=== PATIENT | female | born 1945 | race Caucasian/White ===

== ENCOUNTER 2017-12-18 20:40 | Observation (INO) | payer MEDICARE ==
[~2017-12-18] VITALS: Ht 162.6 cm; Wt 100.7 kg
[~2017-12-18 20:40] MED LIST: ASPIR 8181 MG PO; ATORVASTATIN CA10 MG PO; FUROSEMIDE40 MG PO; INVOKANA PO; METFORMIN HCL500 M2 PO; POTASSIUM CHLO10 ME1 PO; ZEBETA10 MG PO
[2017-12-18] MEDS ORDERED: ONDANSETRON HCL INJ 2 MG/ML VIAL IV STA (21:10)
[2017-12-18 21:20] LABS: BASOPHILS # (AUTO) 0.1 (0.0-0.1); BASOPHILS % 0.5 % (0.0-1.0); EOSINOPHILS # (AUTO) 0.2 (0.0-0.4); EOSINOPHILS % 1.3 % (0.0-6.0); HEMATOCRIT 47.2 % (34.2-44.1); HEMOGLOBIN 15.7 g/dL (12.0-16.0); LYMPHOCYTES # (AUTO) 4.3 (1.0-3.2); LYMPHOCYTES % 34.2 % (18.0-39.1); MEAN CORPUSCULAR HEMOGLOBIN 29.3 pg (28-32); MEAN CORPUSCULAR HGB CONC 33.3 g/dL (31-35); MEAN CORPUSCULAR VOLUME 88.1 fL (81-99); MONOCYTES # (AUTO) 0.8 (0.2-0.8); MONOCYTES % 6.4 % (4.4-11.3); NEUTROPHILS # (AUTO) 7.2 (2.1-6.9); NEUTROPHILS % 57.3 % (38.7-80.0); PLATELET COUNT 285 x10e3/uL (140-360); RED BLOOD COUNT 5.36 x10e6/uL (3.6-5.1); RED CELL DISTRIBUTION WIDTH 12.4 % (11.7-14.4)
[2017-12-18 21:21] LABS: BILIRUBIN,URINE NEGATIVE (NEGATIVE); CLARITY,URINE CLEAR (CLEAR); COLOR,URINE YELLOW (YELLOW); KETONES,URINE NEGATIVE (NEGATIVE); LEUKOCYTE ESTERASE ,URINE TRACE (NEGATIVE); NITRITE,URINE NEGATIVE (NEGATIVE); PROTEIN,URINE DIPSTICK NEGATIVE (NEGATIVE); URINE UROBILINOGEN 0.2 mg/dL (0.2 - 1)
[2017-12-18 21:39] LABS: BACTERIA,URINE RARE /HPF; EPITHELIAL CELLS,URINE RARE /LPF; RBC,URINE 0-5 /HPF (0-5); TRANSITIONAL EPI CELLS,URINE RARE
[2017-12-18 21:40] LABS: ALANINE AMINOTRANSFERASE 17 IU/L (0-55); ALBUMIN 4.5 g/dL (3.5-5.0); ALBUMIN/GLOBULIN RATIO 1.1 (0.8-2.0); ALKALINE PHOSPHATASE 60 IU/L (40-150); ANION GAP 20.3 mmol/L (8-16); BLOOD UREA NITROGEN 19 mg/dL (7-26); BUN/CREATININE RATIO 25 (6-25); CALCIUM 10.8 mg/dL (8.4-10.2); CARBON DIOXIDE 21 mmol/L (22-29); CHLORIDE 107 mmol/L (98-107); CREATINE KINASE 146 IU/L (29-168); CREATININE, SERUM 0.76 mg/dL (0.57-1.11); EST GLOMERULAR FILTRATION RATE > 60 ML/MIN (60-); GLUCOSE 122 mg/dL (74-118); POTASSIUM 4.3 mmol/L (3.5-5.1); SODIUM 144 mmol/L (136-145)
--- NOTE | 2017-12-18 22:00 | Diagnostic Imaging Report ---
EXAMINATION: Head CT without contrast. HISTORY:Dizziness, syncope. COMPARISON:CT brain from 08/01/2016. TECHNIQUE: Multidetector axial images were obtained from the foramen magnum to the vertex without contrast. The images were reconstructed using brain and bone algorithms. Thin section brain images were reformatted into coronal and sagittal planes. Intravenous contrast: None IMAGE QUALITY: Acceptable. FINDINGS: Skull/scalp: No abnormality. Parenchyma: Unchanged focal hypodensity in right subinsular region/lateral aspect of right lentiform nucleus represents old vascular insult. Nonspecific supratentorial white matter few, scattered hypodensity are likely related to small vessel ischemic changes. No acute hemorrhage, mass or acute major vascular territorial infarct. Arteries: Unchanged curvilinear dense calcifications in the region of M1 segment (approximately measures 1.7 cm in maximum transverse dimension) of right middle cerebral artery, raises possibility of underlying fusiform aneurysm or related to prior infection/inflammation. Dural sinuses: No abnormal density suggestive of thrombosis. Ventricles: No hydrocephalus or displacement. Extra-axial spaces: No abnormal density. Brain volume: Normal for age. Craniocervical junction: No mass, Chiari malformation, or basilar invagination. Sella: No mass. Paranasal/mastoid sinuses: Imaged portions unremarkable. IMPRESSION: 1. No acute intracranial abnormality, particularly no acute hemorrhage, mass or acute major vascular territorial infarct. 2. Chronic vascular insult in right subinsular region/lateral aspect of right lentiform nucleus. 3. Unchanged dense atherosclerotic calcification in the region of M1 segment of right middle cerebral artery, may be related to underlying fusiform aneurysm or sequele of prior infection/inflammation. Signed by: Dr. Gabi Atkins M.D. on 12/18/2017 9:56 PM
--- NOTE | 2017-12-18 22:13 | Diagnostic Imaging Report ---
EXAMINATION: CHEST SINGLE (PORTABLE) INDICATION: Syncope COMPARISON: None FINDINGS: TUBES and LINES: None. LUNGS: Lungs are well inflated. Lungs are clear. There is no evidence of pneumonia or pulmonary edema. PLEURA: No pleural effusion or pneumothorax. HEART AND MEDIASTINUM: The cardiomediastinal silhouette is unremarkable. There are atherosclerotic calcifications within the aorta. BONES AND SOFT TISSUES: No acute osseous lesion. Soft tissues are unremarkable. UPPER ABDOMEN: No free air under the diaphragm. IMPRESSION: No acute thoracic abnormality. Signed by: Dr. Souleymane Kendall M.D. on 12/18/2017 10:10 PM
[2017-12-18] MEDS ORDERED: ONDANSETRON HCL INJ 2 MG/ML VIAL IV PRN (22:45)
[2017-12-18] MEDS ORDERED: DEXTROSE 50% SYRINGE 50 ML IV PRN (22:45)
[2017-12-18] MEDS ORDERED: SODIUM CHLORIDE FLUSH 10 ML SYR INJ PRN (22:45)
[2017-12-18] MEDS ORDERED: ASPIRIN 81 MG CHEW TAB PO ONE (22:45)
--- OUTSIDE RECORDS SUMMARY | 2017-12-18 22:54 | XMS REPORT ---
Author Author [facility] Address Unknown Phone Unavailable Care Team Providers Care Surplus Property Disposal Agent Name Role Phone HAKEEM GROVE Unavailable Unavailable Problems This patient has no known problems. Allergies, Adverse Reactions, Alerts This patient has no known allergies or adverse reactions. Medications This patient has no known medications. Results Test Description Test Time Test Comments Text Results Atomic Results Result Comments CT BRAIN WO [place] [id number] [place] [id number] Patient Name: JOHANN RAND MR #: [id number] : 1945 Age/Sex: 72/F Req #: [id number] Adm Physician: Ordered by: HAKEEM GROVE MD Report #: [id number] Location: ER Room/Bed: Procedure: [id number] CT/CT BRAIN WO Exam Date: 12/18/17 Exam Time: 2133 REPORT STATUS: Signed EXAMINATION: Head CT without contrast. HISTORY:Dizziness, syncope. COMPARISON:CT brain from 08/01/2016. TECHNIQUE: Multidetector axial images were obtained from the foramen magnum to the vertex without contrast. The images were reconstructed using brain and bone algorithms. Thin section brain images were reformatted into coronal and sagittal planes. Intravenous contrast: None IMAGE QUALITY: Acceptable. FINDINGS: Skull/scalp: No abnormality. Parenchyma: Unchanged focal hypodensity in right subinsular region/lateral aspect of right lentiform nucleus represents old vascular insult. Nonspecific supratentorial white matter few, scattered hypodensity are likely related to small vessel ischemic changes. No acute hemorrhage, mass or acute major vascular territorial infarct. Arteries: Unchanged curvilinear dense calcifications in the region of M1 segment (approximately measures 1.7 cm in maximum transverse dimension) of right middle cerebral artery, raises possibility of underlying fusiform aneurysm or related to prior infection/ inflammation. Dural sinuses: No abnormal density suggestive of thrombosis. Ventricles: No hydrocephalus or displacement. Extra- axial spaces: No abnormal density. Brain volume: Normal for age. Craniocervical junction: No mass, Chiari malformation, or basilar invagination. Sella: No mass. Paranasal/mastoid sinuses: Imaged portions unremarkable. IMPRESSION: 1. No acute intracranial abnormality, particularly no acute hemorrhage, mass or acute major vascular territorial infarct. 2. Chronic vascular insult in right subinsular region/ lateral aspect of right lentiform nucleus. 3. Unchanged dense atherosclerotic calcification in the region of M1 segment of right middle cerebral artery, may be related to underlying fusiform aneurysm or sequele of prior infection/inflammation. Signed by: Dr. Gabi Atkins M.D. on 12/18/2017 9:56 PM Dictated By: GABI ATKINS MD 55 Transcribed By: ERIK on 12/18 COPY TO: HAKEEM GROVE MD [facility] ([facility]) [place] [address] Patient Name: JOHANN RAND MR #: [id number] : 1945 Age/Sex: 72/F Req #: [id number] Adm Physician: Ordered by: HAKEEM GROVE MD Report #: [id number] Location: Room/Bed: ___ Procedure: [id number] DX/CHEST SINGLE (PORTABLE) Exam Date: 12/18/17 Exam Time: 2134 REPORT STATUS: Signed EXAMINATION: CHEST SINGLE (PORTABLE) INDICATION: Syncope COMPARISON: None FINDINGS: TUBES and LINES: None. LUNGS: Lungs are well inflated. Lungs are clear. There is no evidence of pneumonia or pulmonary edema. PLEURA: No pleural effusion or pneumothorax. HEART AND MEDIASTINUM: The cardiomediastinal silhouette is unremarkable. There are atherosclerotic calcifications within the aorta. BONES AND SOFT TISSUES: No acute osseous lesion. Soft tissues are unremarkable. UPPER ABDOMEN: No free air under the diaphragm. IMPRESSION: No acute thoracic abnormality. Signed by: Dr. Souleymane Kendall M.D. on 12/18/2017 10:10 PM Dictated By: SOULEYMANE MART MD 09 Transcribed By: ERIK on 12/18/172209 COPY TO: HAKEEM GROVE MD
[2017-12-18 23:10] VITALS: BP_SYST 150; BP_DIAS 69; BP_DIAS 76
[2017-12-19] VITALS (7 sets, daily range): BP systolic 125–166; BP diastolic 57–72
[2017-12-19] MEDS ORDERED: ASPIRIN 81 MG CHEW TAB PO SCH (00:45)
[2017-12-19] MEDS ORDERED: ATORVASTATIN 10 MG TAB PO ONE (00:45)
[2017-12-19 06:35] LABS: BASOPHILS % 0.4 % (0.0-1.0); EOSINOPHILS # (AUTO) 0.2 (0.0-0.4); EOSINOPHILS % 1.9 % (0.0-6.0); HEMATOCRIT 43.2 % (34.2-44.1); HEMOGLOBIN 14.3 g/dL (12.0-16.0); LYMPHOCYTES # (AUTO) 3.7 (1.0-3.2); LYMPHOCYTES % 41.2 % (18.0-39.1); MEAN CORPUSCULAR HEMOGLOBIN 29.1 pg (28-32); MEAN CORPUSCULAR HGB CONC 33.1 g/dL (31-35); MONOCYTES # (AUTO) 0.8 (0.2-0.8); MONOCYTES % 8.8 % (4.4-11.3); NEUTROPHILS # (AUTO) 4.3 (2.1-6.9); NEUTROPHILS % 47.5 % (38.7-80.0); PLATELET COUNT 249 x10e3/uL (140-360); RED BLOOD COUNT 4.91 x10e6/uL (3.6-5.1); RED CELL DISTRIBUTION WIDTH 12.5 % (11.7-14.4)
[2017-12-19 07:06] LABS: ALANINE AMINOTRANSFERASE 16 IU/L (0-55); ALBUMIN 3.7 g/dL (3.5-5.0); ALBUMIN/GLOBULIN RATIO 1.1 (0.8-2.0); ALKALINE PHOSPHATASE 50 IU/L (40-150); ANION GAP 15.2 mmol/L (8-16); BLOOD UREA NITROGEN 17 mg/dL (7-26); BUN/CREATININE RATIO 23 (6-25); CALCIUM 10.2 mg/dL (8.4-10.2); CARBON DIOXIDE 23 mmol/L (22-29); CHLORIDE 109 mmol/L (98-107); CREATINE KINASE 101 IU/L (29-168); CREATININE, SERUM 0.73 mg/dL (0.57-1.11); EST GLOMERULAR FILTRATION RATE > 60 ML/MIN (60-); GLUCOSE 116 mg/dL (74-118); POTASSIUM 4.2 mmol/L (3.5-5.1); SODIUM 143 mmol/L (136-145)
[2017-12-19] MEDS: INSULIN REGULAR, HUMAN 100 UNIT/1 ML 3ML VIAL SQ SCH ×4 (07:30→21:00)
--- NOTE | 2017-12-19 14:10 | Consultation ---
DATE OF CONSULTATION: December 19, 2017 CARDIOLOGY CONSULTATION REQUESTING PHYSICIAN: Dr. Vu Diaz REASON FOR CONSULTATION: Syncope. HISTORY OF PRESENT ILLNESS: This is a 72-year-old woman with history of hypertension, hyperlipidemia, diabetes mellitus, and sleep apnea, who presents with complaint of syncope. The patient reports she was feeling well and in her usual state of health until yesterday when she was visiting some friends. She was sitting down when she bent over and began to feel dizzy. She sat up and then lost consciousness. This was witnessed by her friend, who stated she was shaking a little at this time. There was no tongue biting or bowel or bladder incontinence. The episode lasted approximately 30 seconds. There were no preceding symptoms. She denies chest pain, shortness of breath, palpitations, edema, orthopnea or PND. REVIEW OF SYSTEMS: Negative, except as per HPI. PAST MEDICAL HISTORY 1. Hypertension. 2. Hyperlipidemia. 3. Diabetes mellitus. 4. Sleep apnea. 5. History of murmur. PAST SURGICAL HISTORY 1. Tubal ligation. 2. Hysterectomy. 3. Appendectomy. 4. Cholecystectomy. ALLERGIES: NO KNOWN DRUG ALLERGIES. MEDICATIONS: Please see EMR. SOCIAL HISTORY: Denies tobacco, alcohol, or illicit drugs. FAMILY HISTORY: Denies any family history of heart disease. PHYSICAL EXAMINATION VITAL SIGNS: Temperature 97.3 degrees, pulse 59, respiratory rate 20, blood pressure 133/61, oxygen saturation 95% on room air. GENERAL: Obese woman in no acute distress. HEENT: Normocephalic and atraumatic. Pupils are equal and round. No scleral icterus. NECK: Supple. No thyromegaly or cervical lymphadenopathy. No carotid bruit. LUNGS: Clear to auscultation bilaterally. No wheezes or crackles. CARDIOVASCULAR: Normal rate, regular rhythm. No murmur. Normal S1 and S2. ABDOMEN: Soft. Nontender. EXTREMITIES: No edema. NEURO: Nonfocal exam. LABS: WBC 8.96, hemoglobin 14.3, hematocrit 43.2, platelets 249. Sodium 143, potassium 4.2, chloride 109, CO2 23, BUN 15, creatinine 0.73. Troponin 0.014. Chest x-ray: No acute thoracic abnormality. CT brain: No acute intracranial abnormality. Particularly, no acute hemorrhage, mass or acute major vascular territorial infarct. Chronic vascular insult in right subinsular region, lateral aspect of the right lenticular nucleus. Unchanged dense atherosclerotic opacification in the region of the M1 segment of the right middle cerebral artery may be related to underlying fusiform aneurysm or sequelae of prior infection/inflammation. Carotid Dopplers: No hemodynamically significant stenosis. IMPRESSION 1. Syncope. 2. Hypertension. 3. Hyperlipidemia. 4. Diabetes mellitus. 5. Sleep apnea. RECOMMENDATIONS: No evidence of myocardial infarction on cardiac biomarkers thus far. Carotid arterial Doppler was without significant stenosis. Monitor the patient on telemetry for arrhythmia that may explain the patient's symptoms. Echocardiogram has been done. It is pending. We will review the images once it is done. Thank you for this consult. We will continue to follow. Job#: [id number]
[2017-12-19 14:52] LABS: CREATINE KINASE MB 3.7 ng/mL (0-5.0)
[2017-12-19] MEDS ORDERED: ATORVASTATIN 10 MG TAB PO SCH (21:00)
[2017-12-20] VITALS (8 sets, daily range): BP systolic 120–163; BP diastolic 59–70
[2017-12-20] MEDS: INSULIN REGULAR, HUMAN 100 UNIT/1 ML 3ML VIAL SQ SCH ×2 (07:30→11:30)
--- NOTE | 2017-12-20 14:09 | Progress Note ---
DATE: December 20, 2017 CARDIOLOGY PROGRESS NOTE SUBJECTIVE: Patient denies chest pain or shortness of breath. OBJECTIVE VITAL SIGNS: Temperature 98.5 degrees, pulse 63, respiratory rate 16, blood pressure 120/63, oxygen saturation 96% on room air. GENERAL: Awake, alert, in no acute distress. LUNGS: Clear to auscultation bilaterally. No wheezes or crackles. CARDIOVASCULAR: Normal rate, regular rhythm. No murmur. Normal S1 and S2. ABDOMEN: Soft, nontender. EXTREMITIES: No edema. CARDIAC MEDICATIONS: Atorvastatin 10 mg p.o. nightly. LABS: None today. TELEMETRY: Normal sinus rhythm. IMPRESSION 1. Syncope. 2. Hypertension. 3. Hyperlipidemia. 4. Diabetes mellitus. 5. Sleep apnea. RECOMMENDATIONS: There is no evidence of myocardial infarction on serial cardiac biomarkers. Carotid artery arterial Doppler was without evidence of significant stenosis. The echocardiogram was unremarkable, and no arrhythmias have been identified on telemetry and orthostatic vitals have been negative. Patient can be discharged home from a cardiac standpoint. Please have her follow up in the office for 2-week telemetry monitoring. Thank you for this consult. We will continue to follow. Job#: [id number]
== END 2017-12-20 12:48 | disposition home or self-care (01) ==
LOC: ER 20:40 → MED/SURG 22:51
DX: R55 Syncope and collapse (principal); E11.9 Type 2 diabetes mellitus without complications; I10 Essential (primary) hypertension; E66.01 Morbid (severe) obesity due to excess calories; Z68.38 Body mass index [BMI] 38.0-38.9, adult; E78.5 Hyperlipidemia, unspecified; G47.30 Sleep apnea, unspecified
CPT/HCPCS: 36415; 70450; 71045; 80053; 81001; 82550; 82553; 82948; 84484; 85025; 93005; 93306; 93880; 97139; 99284; G0378; J2405

== ENCOUNTER 2018-07-16 11:10 | Observation (INO) | payer MEDICARE ==
[~2018-07-16] VITALS: Ht 162.6 cm; Wt 103.0 kg
[2018-07-16] MEDS ORDERED: ONDANSETRON HCL INJ 2 MG/ML VIAL IV STA (11:26)
[2018-07-16] MEDS ORDERED: SODIUM CHLORIDE 0.9% 1000ML 1,000 ML IV STA (11:26)
[2018-07-16] MEDS ORDERED: ASPIRIN 81 MG CHEW TAB PO ONE ×2 (11:30→14:15)
--- NOTE | 2018-07-16 12:21 | Diagnostic Imaging Report ---
Examination: Single AP view of the chest. COMPARISON: December 18, 2017 INDICATION: Syncope, nausea DISCUSSION: Lines/tubes: None. Lungs: The lungs are well inflated and clear. No pneumonia or pulmonary edema. Pleura: No pleural effusion or pneumothorax. Heart and mediastinum: The heart and the mediastinum are unremarkable. Bones and soft tissues: No acute bony abnormalities. IMPRESSION: 1. No acute cardiopulmonary abnormalities. Signed by: Dr. Wilmer High M.D. on 07/16/2018 12:17 PM
[2018-07-16 12:23] LABS: BASOPHILS % 0.4 % (0.0-1.0); EOSINOPHILS # (AUTO) 0.1 (0.0-0.4); EOSINOPHILS % 1.2 % (0.0-6.0); HEMATOCRIT 46.3 % (34.2-44.1); HEMOGLOBIN 15.1 g/dL (12.0-16.0); LYMPHOCYTES # (AUTO) 2.2 (1.0-3.2); LYMPHOCYTES % 23.1 % (18.0-39.1); MEAN CORPUSCULAR HGB CONC 32.6 g/dL (31-35); MONOCYTES # (AUTO) 0.6 (0.2-0.8); MONOCYTES % 6.5 % (4.4-11.3); NEUTROPHILS # (AUTO) 6.6 (2.1-6.9); PLATELET COUNT 246 x10e3/uL (140-360); RED CELL DISTRIBUTION WIDTH 12.5 % (11.7-14.4)
[2018-07-16 12:28] LABS: INR 0.91; PROTHROMBIN TIME 13.1 seconds (11.9-14.5)
[2018-07-16 12:29] LABS: PARTIAL THROMBOPLASTIN TIME 25.7 seconds (23.8-35.5)
[2018-07-16 12:37] LABS: ALANINE AMINOTRANSFERASE 37 IU/L (0-55); ALBUMIN 4.4 g/dL (3.5-5.0); ALBUMIN/GLOBULIN RATIO 1.2 (0.8-2.0); ALKALINE PHOSPHATASE 58 IU/L (40-150); ANION GAP 17.3 mmol/L (8-16); BLOOD UREA NITROGEN 14 mg/dL (7-26); BUN/CREATININE RATIO 18 (6-25); CALCIUM 11.3 mg/dL (8.4-10.2); CARBON DIOXIDE 25 mmol/L (22-29); CHLORIDE 105 mmol/L (98-107); CREATINE KINASE 105 IU/L (29-168); CREATININE, SERUM 0.78 mg/dL (0.57-1.11); EST GLOMERULAR FILTRATION RATE > 60 ML/MIN (60-); GLUCOSE 127 mg/dL (74-118); LIPASE 23 U/L (8-78); POTASSIUM 4.3 mmol/L (3.5-5.1); SODIUM 143 mmol/L (136-145)
[2018-07-16 13:00] LABS: THYROID STIMULATING HORMONE 1.651 uIU/mL (0.350-4.940)
--- NOTE | 2018-07-16 13:26 | Diagnostic Imaging Report ---
EXAMINATION: Head CT HISTORY: Syncope COMPARISON: Head CT on 12/18/2017 TECHNIQUE: Multidetector axial images were obtained without contrast from the foramen magnum to the vertex . The images were reconstructed using brain and bone algorithms. Thin section brain images were reformatted into coronal and sagittal planes. Intravenous contrast: None. Image quality: Motion/streaking artifact limits the evaluation of the skull base and posterior cranial fossa. Dose modulation, iterative reconstruction, and/or weight based adjustment of the mA/kV was utilized to reduce the radiation dose to as low as reasonably achievable. FINDINGS: Parenchyma: 1. Unchanged cavitating encephalomalacia in the right putamen/external capsule, likely sequela from prior infarct. 2. No mass or hemorrhage. No CT evidence of acute territorial vascular insult. Extra-axial spaces:No abnormal density. No extra-axial fluid collections Brain volume: Normal for age. Ventricles: No hydrocephalus or displacement. Arteries: Unchanged dense atherosclerotic calcification in the region of M1 segment of right middle cerebral artery, again may be related to underlying fusiform aneurysm or sequela from prior infection/inflammation Dural sinuses: No abnormal density. Extra-axial spaces: No abnormal density. Foramen magnum: No mass, Chiari malformation, or basilar invagination. Sella: No obvious mass. Paranasal/mastoid sinuses: Imaged portions unremarkable. Skull/Scalp: No lytic or blastic lesions. No fractures. IMPRESSION: 1. No acute intracranial hemorrhage or cortical infarcts. 2. 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 3. Persistent severe calcified atherosclerosis of the right MCA. Signed by: Dr. Colette Hawkins M.D. on 07/16/2018 1:23 PM
[2018-07-16] MEDS ORDERED: VITAMIN C1000 MG PO (13:34)
[2018-07-16] MEDS ORDERED: UBIQUINOL100 MG PO (13:34)
[2018-07-16] MEDS ORDERED: MULTI-VITAMIN1 EACH PO (13:34)
[2018-07-16] MEDS ORDERED: BYSTOLIC10 MG PO (13:34)
[2018-07-16] MEDS ORDERED: FISH OIL 1,0001 EAC2 PO (13:34)
[2018-07-16 13:52] LABS: BILIRUBIN,URINE NEGATIVE (NEGATIVE); CLARITY,URINE SL CLOUDY (CLEAR); COLOR,URINE YELLOW (YELLOW); KETONES,URINE TRACE (NEGATIVE); LEUKOCYTE ESTERASE ,URINE TRACE (NEGATIVE); NITRITE,URINE NEGATIVE (NEGATIVE); PROTEIN,URINE DIPSTICK NEGATIVE (NEGATIVE); URINE UROBILINOGEN 0.2 mg/dL (0.2 - 1)
[2018-07-16 13:53] LABS: BACTERIA,URINE FEW /HPF; EPITHELIAL CELLS,URINE MODERATE /LPF; RENAL EPITHELIAL CELLS,URINE RARE; TRANSITIONAL EPI CELLS,URINE FEW
[2018-07-16] MEDS ORDERED: SODIUM CHLORIDE FLUSH 10 ML SYR INJ PRN (14:15)
[2018-07-16] MEDS ORDERED: ONDANSETRON HCL INJ 2 MG/ML VIAL IV PRN (14:15)
[2018-07-16 16:56] VITALS: BP 162/64
[2018-07-16 17:11] VITALS: BP 162/64
[2018-07-16] MEDS ORDERED: PNEUMOCOCCAL VACCINE POLYVALENT 23 MCG/0.5 ML VIAL IM SCH (18:00)
[2018-07-16] MEDS ORDERED: INFLUENZA VIRUS VAC SPLIT INJ 0.5 ML SYR IM SCH (18:00)
[2018-07-16] MEDS ORDERED: PNEUMOC 13-VAL CONJ-DIP CRM/PF 0.5 ML DISP.SYRIN IM SCH (18:00)
[2018-07-16] MEDS ORDERED: LORAZEPAM INJ 2 MG/ML VIAL IV PRN (19:15)
[2018-07-16 20:00] VITALS: BP 159/68
[2018-07-16 20:05] LABS: CREATINE KINASE MB 2.9 ng/mL (0-5.0)
[2018-07-16] MEDS ORDERED: ATORVASTATIN 10 MG TAB PO SCH (21:00)
[2018-07-16] MEDS ORDERED: METFORMIN HCL 500 MG TAB CR PO SCH ×2 (21:00)
--- NOTE | 2018-07-16 23:04 | Consultation ---
AUDIO CUTTING IN AND OUT IN SOME PORTIONS OF THE REPORT DATE OF CONSULTATION: July 16, 2018 NEUROLOGY CONSULT NOTE HISTORY OF PRESENT ILLNESS: Ms. Oleary is a 72-year-old right-hand dominant woman with past medical history significant for hypertension, hyperlipidemia, and diabetes mellitus admitted to [facility] on July 16, 2018 with syncope versus seizure. On the evening prior to admission, the patient was sitting at her kitchen table, eating dinner, when she felt a sudden onset of dizziness, which she describes as "zigzags in my mind". Later during the encounter, the patient describes the dizziness as a back and forth motion. Immediately, following the onset of dizziness, the patient's eyes closed, her chin dropped to her chest, and her became flushed. The patient appeared to be falling towards 1 side, so her grabbed the opposite arm to keep her upright. While unconscious, the patient made a noise like "she was smacking her lips". This activity lasted for approximately 15 seconds. When the patient came to, she was oriented to person, place, time, and situation. However, she felt very tired afterwards and had a mild diffuse headache. There was no witnessed tonic clonic activity, tongue biting or bladder/bowel incontinence. The following day, while at her doctor's office to have blood drawn, the patient experienced a similar event. However, the period of unconsciousness lasted for approximately 1 minute. Once again, when Ms. Oleary regained consciousness, she was alert and oriented to person, place, time, and situation. She did report a diffuse headache after regaining consciousness. The patient endorsed feeling very tired as well. Ms. Oleary' primary care physician directed the patient towards the emergency center at [facility] with the patient subsequently deferred here for further evaluation of her symptoms. Ms. Oleary reports experiencing a prior syncopal event in December 2017 for which she was hospitalized and underwent multiple diagnostic studies. The cause of her symptoms was not found. The patient does not report a history of febrile seizures. There is no known family history of seizures. In July of 2016, the patient's slipped and fell hitting her tailbone and the back of her head on a tiled floor. There is no loss of consciousness. Ms. Oleary does not report other incidence of head trauma. There is no reported history of meningitis or encephalitis. REVIEW OF SYSTEMS: Fatigue, shortness of breath, dizziness, loss of consciousness. Otherwise, a 12-point review of systems is negative. PAST MEDICAL HISTORY: Hypertension, hyperlipidemia, diabetes mellitus type 2, polio at the age of 6 years. PAST SURGICAL HISTORY: Bilateral tubal ligation, total hysterectomy/appendectomy, cholecystectomy. PAST HOSPITALIZATIONS: Surgeries/procedures as listed, childbirth times 3, loss of consciousness in December of 2017. FAMILY MEDICAL HISTORY: The patient's paternal and maternal grandparents are . Their medical histories are unknown. The patient's father is from metastatic lung cancer. Her mother is from an intracerebral hemorrhage. Ms. Oleary has 1 sibling, a brother, who is alive. He has hypertension, diabetes mellitus, and has had a stroke. Ms. Oleary has 3 children, 2 sons and 1 daughter, all of whom are alive and healthy. SOCIAL HISTORY: Ms. Oleary is . She is a retired sed high school teacher. The patient does not report current or prior tobacco, alcohol or recreational drug use. HOME MEDICATIONS: Please see the list of home medications available in the electronic medical record. ALLERGIES: NO KNOWN DRUG ALLERGIES. NO KNOWN FOOD ALLERGIES. NO KNOWN ALLERGIES TO LATEX. NO KNOWN ALLERGIES TO IODINE OR OTHER CONTRAST MATERIALS. PHYSICAL EXAMINATION VITAL SIGNS: Height 64 inches, weight 225 pounds. BMI 38.6 kg per meter squared. Blood pressure 162/64 mmHg. Pulse 59 beats per minute. Respiratory rate 20 breaths per minute. Oxygen saturation 98% on room air. GENERAL: The patient is awake and alert. Does not appear distressed. Morbidly obese. HEENT: Normocephalic, atraumatic. Pupils are equal, round, and reactive to light. Moist mucous membranes. NECK: Supple. No appreciable thyromegaly. No appreciable carotid bruits. CARDIOVASCULAR: S1, S2, regular rate and rhythm. No murmurs, rubs or gallops. RESPIRATORY: Clear to auscultation bilaterally. No wheezes, rhonchi or rales. EXTREMITIES: The skin is warm and dry. No clubbing, cyanosis or edema. The posterior tibial and dorsalis pedis pulses are 1+ and symmetric. SKIN. No rashes or lesions. NEUROLOGIC Memory/Attention: The patient is awake and alert. Oriented to person place time, and situation. Cranial Nerves: Cranial nerve I--not tested. Cranial nerve II, III, IV, and --pupils are equal and round, react briskly to light (from 4 mm to 2 mm). Extraocular movements intact. No nystagmus. Cranial nerve V--sensation to light touch and pinprick is intact in the bilateral V1 through V3 distributions. Strength in the temporalis and masseter muscles is within normal limits. Cranial nerve VII--the face is symmetric as are all facial movements. Strength is within normal limits. Cranial nerve VIII--hearing is intact to finger rub bilaterally. Cranial nerve IX, X--the soft palate elevates equally and symmetrically. Cranial nerve XI--normal strength of the bilateral sternocleidomastoid and trapezius muscles. Cranial nerve XII--the tongue protrudes midline and moves symmetrically from side to side. Strength: Bulk is normal. Strength is 5/5 in the bilateral deltoids, biceps, triceps, wrist flexors and extensors, finger flexors and extensors, intrinsic hand muscles, hip flexors knee flexors and extensors ankle dorsiflexion and plantar option, and intrinsic foot muscles. Tone is normal. DTRs: Deep tendon reflexes are 2+ and symmetric at the triceps biceps brachioradialis, and patellas. Deep tendon reflexes are 1+ and symmetric at the Achilles. Plantar responses are flexor bilaterally. Sensation: Sensation is intact to light touch and pinprick in both arms and both legs. Cerebellar: Cbbxwe-bazi-jazmzc and heel-yoo movements are intact without dysmetria or other impairment. Gait: Deferred. Speech: Spontaneous speech is normal without appreciable dysarthria or aphasia. Repetition is intact. Involuntary Movements: None. Pronator Drift: None. LABORATORY DATA: The patient's comprehensive metabolic panel is unremarkable. Cardiac enzymes are negative x1. Lipase 23. TSH 1.651. The CBC with differential and platelets reveals a white blood cell count of 9.69 with a normal differential. The hemoglobin and hematocrit are 15.1 and 46.3, respectively. The platelet count is 246,000. The coagulation profile was within normal limits. A urinalysis is significant for slightly cloudy urine with 3+ glucose, trace ketones, trace leukocyte esterase, 6 to 10 white blood cells, moderate epithelials cells, and few urine bacteria. A urine culture has been collected and is pending. DIAGNOSTIC STUDIES 1. Electrocardiogram 07/16/2018: Sinus bradycardia at 59 beats per minute. 2. Chest x-ray, 07/16/2018: No acute cardiopulmonary abnormality. 3. CT of the brain without contrast, 07/16/2018: On my review, there is no evidence of recent large territorial ischemia, hemorrhage, mass or mass effect. A chronic ischemic infarct is seen in the right basal ganglia. There is calcified atherosclerosis of the right middle cerebral artery. Cerebral volumes appear appropriate for age. There are findings compatible with [id number] chronic small-vessel ischemic disease. ASSESSMENT AND PLAN: Ms. Oleary is a 72-year-old right-hand dominant woman with past medical history as detailed admitted to [facility] on July 16, 2018 with syncope versus seizure. At present, the patient's neurological examination is nonfocal. Her laboratory data and other diagnostic studies have been reviewed and are documented above. For the most part, the patient's description of the detailed in the history of present illness are more compatible with syncope. However, she does report the most recent events, occurring earlier on the day of admission was characterized by a period of consciousness lasting approximately 1 minute. This is atypical of syncope, but not unusual for seizure. Additionally, the patient reports a mild diffuse headache as well as feeling very tired after each of the most recent events. Once again, this is more typical of seizure activity. RECOMMENDATIONS 1. An MRI of the brain without contrast will be ordered to evaluate for structural anomalies, which made give rise to seizures. Ms. Oleary will be prescribed Ativan 1 mg intravenously as needed provider relations rep for the MRI of the brain due to her history of claustrophobia. 2. A routine EEG she will be ordered to evaluate for abnormal electrocortical electrical activity. 3. Defer treatment of the remaining medical comorbidities to the primary and other services following the patient. Thank you for this consultation. I will continue to follow the patient while she remains in the hospital. TIME SPENT: 70 minutes. Job#: [id number] ARNOL GARCIA
[2018-07-17] VITALS: BP 110/53
[2018-07-17 00:05] VITALS: BP 110/53
[2018-07-17 04:00] VITALS: BP 118/56
[2018-07-17 05:43] LABS: BASOPHILS # (AUTO) 0.1 (0.0-0.1); BASOPHILS % 0.5 % (0.0-1.0); EOSINOPHILS # (AUTO) 0.3 (0.0-0.4); EOSINOPHILS % 2.8 % (0.0-6.0); HEMATOCRIT 42.5 % (34.2-44.1); HEMOGLOBIN 13.7 g/dL (12.0-16.0); LYMPHOCYTES # (AUTO) 3.2 (1.0-3.2); LYMPHOCYTES % 31.6 % (18.0-39.1); MEAN CORPUSCULAR HEMOGLOBIN 28.8 pg (28-32); MEAN CORPUSCULAR HGB CONC 32.2 g/dL (31-35); MEAN CORPUSCULAR VOLUME 89.5 fL (81-99); MONOCYTES # (AUTO) 0.9 (0.2-0.8); NEUTROPHILS # (AUTO) 5.6 (2.1-6.9); NEUTROPHILS % 55.7 % (38.7-80.0); PLATELET COUNT 225 x10e3/uL (140-360); RED BLOOD COUNT 4.75 x10e6/uL (3.6-5.1); RED CELL DISTRIBUTION WIDTH 12.7 % (11.7-14.4)
[2018-07-17 06:09] LABS: ALANINE AMINOTRANSFERASE 26 IU/L (0-55); ALBUMIN 3.7 g/dL (3.5-5.0); ALBUMIN/GLOBULIN RATIO 1.3 (0.8-2.0); ALKALINE PHOSPHATASE 49 IU/L (40-150); ANION GAP 16.3 mmol/L (8-16); BLOOD UREA NITROGEN 17 mg/dL (7-26); BUN/CREATININE RATIO 21 (6-25); CALCIUM 10.1 mg/dL (8.4-10.2); CARBON DIOXIDE 22 mmol/L (22-29); CHLORIDE 108 mmol/L (98-107); CREATINE KINASE 86 IU/L (29-168); EST GLOMERULAR FILTRATION RATE > 60 ML/MIN (60-); GLUCOSE 117 mg/dL (74-118); POTASSIUM 4.3 mmol/L (3.5-5.1); SODIUM 142 mmol/L (136-145)
[2018-07-17 08:26] VITALS: BP 147/63
[2018-07-17] MEDS ORDERED: LORAZEPAM INJ 2 MG/ML VIAL ONE (08:31)
--- NOTE | 2018-07-17 08:33 | Consultation ---
DATE OF CONSULTATION: July 16, 2018 CARDIOLOGY CONSULTATION REQUESTING PHYSICIAN: Dr. Vu Diaz. REASON FOR CONSULTATION: Syncope. HISTORY OF PRESENT ILLNESS: This is a 72-year-old woman with history of diabetes mellitus, hypertension, hyperlipidemia, sleep apnea and history of polio who presents with complaints of syncope. The patient reports that she had been feeling well up until yesterday when she sat down to eat dinner. Detention through dinner she began to feel dizzy and she lost consciousness. This lasted approximately 10-15 seconds. After she woke up, she was behaving appropriately per family, although she did feel slightly nauseated. This event was witnessed by her family who deny any bowel or bladder incontinence or seizure-like activity. The patient indicates she had some dizziness this morning, not as severe as last night. She, therefore, went to see her primary care physician, Dr. Venegas. She was sent for blood work, but before she could have the blood drawn she had another episode where she felt dizzy and lost consciousness. This lasted approximately one minute. She, therefore, presents to the ER for further evaluation. Of note, she had a similar episode earlier this year in December for which she was admitted briefly into [facility]. At that time, carotid Doppler was performed without hemodynamically significant stenosis noted in the carotid system bilaterally. Echocardiogram was also performed with normal LV size and systolic function. EF was 55% to 60%. There was mild concentric LVH and impaired LV relaxation. No significant valvular abnormalities were appreciated. REVIEW OF SYSTEMS: Negative except as per HPI. PAST MEDICAL HISTORY: Diabetes mellitus, hypertension, hyperlipidemia, history of polio, sleep apnea. PAST SURGICAL HISTORY: Hysterectomy with tubal ligation. Appendectomy with cholecystectomy. ALLERGIES: NO KNOWN DRUG ALLERGIES. MEDICATIONS: Please see EMR. SOCIAL HISTORY: Denies tobacco, alcohol or illicit drugs. FAMILY HISTORY: Noncontributory. PHYSICAL EXAMINATION VITAL SIGNS: Temperature 98.4 degrees, pulse 65, respiratory rate 20, blood pressure 119/66, oxygen saturation 100%. GENERAL: An obese woman in no acute distress. HEENT: Normocephalic, atraumatic. Pupils are equal. No scleral icterus. NECK: Supple. No thyromegaly or cervical lymphadenopathy. No carotid bruits. LUNGS: Clear to auscultation bilaterally. No wheezes or crackles. CARDIOVASCULAR: Normal rate, regular rhythm. No murmurs. Normal S1 and S2. ABDOMEN: Soft and nontender. EXTREMITIES: No edema. NEUROLOGIC: Nonfocal exam. LABORATORY DATA: WBC 9.69, hemoglobin 15.1, hematocrit 46.3, platelets 246,000, sodium 143, potassium 4.3, chloride 105, CO2 of 25, BUN 14, creatinine 0.78, troponin less than 0.001. Urinalysis with 3+ glucose, trace ketones, trace leukocyte esterase, 6-10 WBCs, and moderate epithelial cells. CT brain: No acute intracranial hemorrhage or cortical infarct, unchanged chronic infarct in the right basal ganglia, presence of severe calcified atherosclerosis of the right MCA. Chest x-ray: No acute cardiopulmonary abnormalities. EKG: Sinus bradycardia with right bundle branch block. IMPRESSION 1. Syncope. 2. Hypertension. 3. Diabetes mellitus. 4. Hyperlipidemia. 5. Sleep apnea. RECOMMENDATIONS: Echocardiogram and carotid Dopplers were unremarkable in December. The patient needs further evaluation for possible arrhythmic etiology. Will attempt to schedule ILR. Monitor the patient on telemetry while admitted. Check orthostatic vitals. Trend cardiac enzymes. Continue home cardiac medications otherwise. Thank you for this consult. Will continue to follow. Job#: [id number]
[2018-07-17] MEDS ORDERED: [UNRECOGNIZED DRUG - OTHER] PO SCH (09:00)
[2018-07-17] MEDS ORDERED: FISH OIL PO SCH (09:00)
[2018-07-17] MEDS ORDERED: NON-FORMULARY MEDICATION (Ascorbic Acid (Vitamin C) 1,000 MG) PO SCH (09:00)
[2018-07-17] MEDS ORDERED: FATTY ACIDS PO SCH (09:00)
[2018-07-17] MEDS ORDERED: OMEGA 3 POLYUNSAT FATTY ACIDS 1000 MG SOFTGEL PO SCH (09:00)
[2018-07-17] MEDS ORDERED: NON-FORMULARY MEDICATION ([Invokana] 300 MG) PO SCH ×2 (09:00)
[2018-07-17] MEDS ORDERED: ASCORBIC ACID 500 MG TAB PO SCH (09:00)
[2018-07-17] MEDS ORDERED: OMEGA PO SCH (09:00)
[2018-07-17] MEDS ORDERED: NEBIVOLOL 10 MG TAB PO SCH (09:00)
[2018-07-17] MEDS ORDERED: MULTIVITAMINS/MINERALS TAB PO SCH (09:00)
[2018-07-17] MEDS ORDERED: ASPIRIN 81 MG CHEW TAB PO SCH (09:00)
--- NOTE | 2018-07-17 10:45 | Diagnostic Imaging Report ---
EXAMINATION: MRI of the brain without contrast. HISTORY: Seizures, syncope COMPARISON: Head CT on 08/12/2019 TECHNIQUE: Sagittal T1; axial T1-IR, MPGR, DWI, FLAIR. Thin section coronals of the temporal lobes: FLAIR, T2. IMAGE QUALITY: Adequate. FINDINGS: Mass: None. Enhancement: No abnormal enhancement of the brain or meninges. Encephalomalacia: No areas. Ischemic changes: Minimal periventricular white matter T2 hyperintense foci, nonspecific chronic microvascular ischemic changes. Tiny chronic lacunar infarcts and prominent perivascular spaces in the right putamen. Calcification/iron: No abnormal deposits. Hippocampi: No atrophy or gliosis. Normal fornices. Vascular: No obvious vascular malformation. Normal flow voids in major arteries and veins.[ Triplett matter: No cortical migration anomalies. Other: Brain volume: Normal for age. Ventricles: No hydrocephalus or displacement. Foramen Magnum: Unremarkable. Sella: Unremarkable. Skull: No focal lesions. Sinuses/mastoids: No significant inflammatory disease. Vessels: Again visualized. Fusiform aneurysmal dilatation of the right MCA M1 segment that corresponds with prominent calcification seen on CT. IMPRESSION: 1. No acute infarct, mass or mesial temporal sclerosis. 2. Mild chronic microvascular ischemic changes. 3. Again seen chronic lacunar infarct in the right basal ganglia. 4. Mild diffuse fusiform aneurysmal dilatation of the right MCA M1 segment. Signed by: Dr. Colette Hawkins M.D. on 07/17/2018 10:42 AM
[2018-07-17] MEDS ORDERED: LIDOCAINE 1% W/EPINEPHRINE 20 ML VIAL ONE (11:07)
[2018-07-17 12:47] VITALS: BP 129/59
--- NOTE | 2018-07-17 16:55 | Progress Note ---
DATE: July 17, 2018 CARDIOLOGY PROGRESS NOTE SUBJECTIVE: Patient denies chest pain or shortness of breath. OBJECTIVE VITAL SIGNS: Temperature 99.1 degrees, pulse 62, respiratory rate 20, blood pressure 147/63, oxygen saturation 98% on room air. GENERAL: Awake, alert, in no acute distress. LUNGS: Clear to auscultation bilaterally. No wheezes or crackles. CARDIOVASCULAR: Normal rate, regular rhythm. No murmur. Normal S1 and S2. ABDOMEN: Soft, nontender. EXTREMITIES: No edema. CARDIAC MEDICATIONS: Fish oil 1000 mg p.o. daily, nebivolol 5 mg p.o. daily, atorvastatin 10 mg p.o. at bedtime, and aspirin 81 mg p.o. daily. LABORATORY DATA: WBC 10.02, hemoglobin 13.7, hematocrit 42.8, platelets 225. Sodium 142, potassium 4.3, chloride 108, CO2 of 22, BUN 17, creatinine 0.8, and troponin 0.003. TELEMETRY: Normal sinus rhythm. IMPRESSION 1. Syncope. 2. Hypertension. 3. Diabetes mellitus. 4. Hyperlipidemia. 5. Sleep apnea. RECOMMENDATIONS: Echocardiogram and carotid Dopplers were unremarkable in December. ILR implantation was performed today to monitor for arrhythmic causes of patient's syncope. Patient has undergone MRI and EEG per neurology for evaluation of possible seizures as well. No further cardiac evaluation is indicated at this time. Patient will need to follow up with us in the office in 2 weeks. Thank you for this consult. We will continue to follow. Job#: [id number] VAS RADHA
[2018-07-17 17:18] VITALS: BP 148/67
--- NOTE | 2018-07-17 18:17 | Electroencephalogram ---
DATE OF STUDY: July 17, 2018 REQUESTING PHYSICIAN: Dr. Magaly Monroe PATIENT HISTORY: This 72-year-old woman with history of syncope versus seizures is having an EEG for evaluation of epileptiform activity. The patient is taking the following medications, which might effect the EEG: Lorazepam. TECHNIQUE: This is a routine, portable EEG, recorded digitally, using the International 10/20 Electrode Placement System, and done in the inpatient setting with the patient awake. The EEG is adequate for interpretation. DESCRIPTION: Well-organized, well-sustained, 8-9 Hz activity is best seen symmetrically in the posterior head regions. Superimposed beta frequency (13-14 Hz) activity is intermixed, likely the result of medication affect. No focal or epileptiform activity is recorded. Sleep is not recorded. Photic stimulation produces a driving response. Hyperventilation produces a slowing response. INTERPRETATION: This electroencephalogram is normal with the patient awake. No epileptiform discharges are seen. Job#: [id number] GH MTDD
== END 2018-07-17 18:21 | disposition home or self-care (01) ==
LOC: ER 11:10 → ERHOLD 14:09 → INTOOBSV 14:09 → MED/SURG 15:49
DX: R55 Syncope and collapse (principal); I10 Essential (primary) hypertension; E11.9 Type 2 diabetes mellitus without complications; Z86.12 Personal history of poliomyelitis; R42 Dizziness and giddiness; G47.33 Obstructive sleep apnea (adult) (pediatric); E66.01 Morbid (severe) obesity due to excess calories; E78.5 Hyperlipidemia, unspecified; Z68.38 Body mass index [BMI] 38.0-38.9, adult; R56.9 Unspecified convulsions; Z86.73 Personal history of transient ischemic attack (TIA), and cerebral infarction without residual deficits
CPT/HCPCS: 36415 ×2; 70450; 70551; 71045; 80053 ×2; 81001; 82550 ×2; 82553 ×2; 82948 ×2; 83690; 83735; 83880; 84443; 84484 ×2; 85025 ×2; 85610; 85730; 87086; 90670; 93005; 95816; 97139; 99284; C1764; G0378 ×2; J2060; J2405; J7030; 33282

== ENCOUNTER 2018-08-11 11:43 | Observation (INO) | payer MEDICARE, OTHER ==
[~2018-08-11] VITALS: Ht 162.6 cm; Wt 108.9 kg
[~2018-08-11 11:43] MED LIST changes: +BYSTOLIC10 MG PO; +FISH OIL 1,0001 EAC2 PO; +MULTI-VITAMIN1 EACH PO; +UBIQUINOL100 MG PO; +VITAMIN C1000 MG PO
[2018-08-11] MEDS ORDERED: DEXTROSE 50% SYRINGE 50 ML IV PRN (12:30)
[2018-08-11] MEDS ORDERED: LOSARTAN POTASS25 MG PEG (12:42)
[2018-08-11 12:48] LABS: CLARITY,URINE SL CLOUDY (CLEAR); COLOR,URINE YELLOW (YELLOW); LEUKOCYTE ESTERASE ,URINE TRACE (NEGATIVE); NITRITE,URINE NEGATIVE (NEGATIVE)
[2018-08-11 12:49] LABS: BILIRUBIN,URINE NEGATIVE (NEGATIVE); KETONES,URINE NEGATIVE (NEGATIVE); PROTEIN,URINE DIPSTICK NEGATIVE (NEGATIVE); URINE UROBILINOGEN 0.2 mg/dL (0.2 - 1)
[2018-08-11 12:53] LABS: BASOPHILS # (AUTO) 0.1 (0.0-0.1); BASOPHILS % 0.4 % (0.0-1.0); EOSINOPHILS # (AUTO) 0.2 (0.0-0.4); EOSINOPHILS % 1.6 % (0.0-6.0); HEMATOCRIT 47.1 % (34.2-44.1); HEMOGLOBIN 15.4 g/dL (12.0-16.0); LYMPHOCYTES # (AUTO) 4.4 (1.0-3.2); LYMPHOCYTES % 38.9 % (18.0-39.1); MEAN CORPUSCULAR HEMOGLOBIN 29.1 pg (28-32); MEAN CORPUSCULAR HGB CONC 32.7 g/dL (31-35); MEAN CORPUSCULAR VOLUME 88.9 fL (81-99); MONOCYTES # (AUTO) 0.9 (0.2-0.8); MONOCYTES % 8.3 % (4.4-11.3); NEUTROPHILS # (AUTO) 5.7 (2.1-6.9); NEUTROPHILS % 50.4 % (38.7-80.0); PLATELET COUNT 252 x10e3/uL (140-360); RED CELL DISTRIBUTION WIDTH 12.8 % (11.7-14.4)
[2018-08-11 13:02] LABS: INR 0.87; PROTHROMBIN TIME 12.7 seconds (11.9-14.5)
[2018-08-11 13:03] LABS: PARTIAL THROMBOPLASTIN TIME 27.6 seconds (23.8-35.5)
--- NOTE | 2018-08-11 13:11 | Diagnostic Imaging Report ---
Examination: Single AP view of the chest. COMPARISON: Chest radiograph 07/16/2018. INDICATION: Syncope, nausea DISCUSSION: Lines/tubes: None. Lungs: The lungs are well inflated and clear. No pneumonia or pulmonary edema. Pleura: No pleural effusion or pneumothorax. Heart and mediastinum: The cardiomediastinal silhouette is unremarkable. Atherosclerotic calcification of the aortic arch. Bones and soft tissues: No acute bony abnormalities. IMPRESSION: No acute radiographic abnormality. Signed by: Dr. Olaf Almeida MD on 08/11/2018 1:08 PM
[2018-08-11 13:16] LABS: BACTERIA,URINE RARE /HPF; EPITHELIAL CELLS,URINE FEW /LPF; RBC,URINE 0-5 /HPF (0-5)
[2018-08-11 13:26] LABS: ALANINE AMINOTRANSFERASE 28 IU/L (0-55); ALBUMIN 4.5 g/dL (3.5-5.0); ALBUMIN/GLOBULIN RATIO 1.3 (0.8-2.0); ALKALINE PHOSPHATASE 53 IU/L (40-150); ANION GAP 16.1 mmol/L (8-16); BLOOD UREA NITROGEN 14 mg/dL (7-26); BUN/CREATININE RATIO 19 (6-25); CALCIUM 11.2 mg/dL (8.4-10.2); CARBON DIOXIDE 25 mmol/L (22-29); CHLORIDE 105 mmol/L (98-107); CREATINE KINASE 83 IU/L (29-168); CREATININE, SERUM 0.75 mg/dL (0.57-1.11); EST GLOMERULAR FILTRATION RATE > 60 ML/MIN (60-); GLUCOSE 110 mg/dL (74-118); MAGNESIUM 2.4 MG/DL (1.3-2.1); POTASSIUM 4.1 mmol/L (3.5-5.1); SODIUM 142 mmol/L (136-145)
[2018-08-11 14:03] VITALS: BP 134/63
[2018-08-11 14:32] VITALS: BP 134/63
--- NOTE | 2018-08-11 15:58 | History and Physical ---
REASON FOR ADMISSION: Syncope. HISTORY OF PRESENT ILLNESS: This is a 72-year-old woman with history of diabetes mellitus, hypertension, hyperlipidemia, sleep apnea, and history of polio, who presents with recurrent syncope. Patient has had 2 prior admissions this year with syncope. After her last episode, she had ILR placed for further monitoring. On Saturday patient indicates that she had just finished dinner when she developed what she describes as a zigzag feeling. She subsequently lost consciousness. She had been sitting down at the time. This was witnessed by her . There was no tongue-biting, bowel or bladder incontinence. She was unconscious for approximately 30 seconds before waking up. After the episode, patient was alert but complained of significant nausea. She otherwise denied chest pain, shortness of breath, palpitations, edema, orthopnea or PND. She was seen in the clinic today for evaluation, and on ILR interrogation she was found to have a 6-second pause at the time of her event. Patient was subsequently sent to [facility] ER for admission and permanent pacemaker evaluation. REVIEW OF SYSTEMS: Negative except as per HPI. PAST MEDICAL HISTORY 1. Diabetes mellitus. 2. Hypertension. 3. Hyperlipidemia. 4. Sleep apnea. 5. History of polio. PAST SURGICAL HISTORY 1. Hysterectomy with tubal ligation. 2. Appendectomy. 3. Cholecystectomy. ALLERGIES: NO KNOWN DRUG ALLERGIES. MEDICATIONS: Please see medication list but notable for Bystolic 5 mg p.o. daily. SOCIAL HISTORY: No tobacco, alcohol or illicit drugs. FAMILY HISTORY: Noncontributory. PHYSICAL EXAMINATION VITAL SIGNS: Temperature 98.5 degrees, pulse 59, respiratory rate 20, blood pressure 134/63, oxygen saturation 97% on room air. GENERAL: Obese woman in no acute distress. Awake and alert. HEENT: Normocephalic, atraumatic. Pupils equal, no scleral icterus. NECK: Supple. No thyromegaly or cervical lymphadenopathy, no carotid bruits. LUNGS: Clear to auscultation bilaterally. No wheezes or crackles. CARDIOVASCULAR: Normal rate, regular rhythm. No murmur. Normal S1 and S2. ABDOMEN: Soft, nontender. EXTREMITIES: No edema. NEURO: Nonfocal exam. LABS: WBC 11.23, hemoglobin 15.4, hematocrit 47.1, platelets 252. Sodium 142, potassium 4.1, chloride 105, CO2 25, BUN 14, creatinine 0.75. Troponin less than 0.001. INR 0.87. UA: 3+ glucose, trace blood, trace leukocyte esterase, 6-10 WBCs, few epithelial cells. ELECTROCARDIOGRAM: Normal sinus rhythm, left axis deviation, right bundle branch block. IMPRESSION 1. Recurrent syncope. 2. Six-second pause noted on implantable loop recorder. 3. Hypertension. 4. Diabetes mellitus. 5. Hyperlipidemia. 6. Sleep apnea. RECOMMENDATIONS: Echocardiogram was previously performed earlier this year with normal LVEF. Given correlation of syncope with sinus pause, this is most likely the cause of her recurrent syncope. Electrophysiology, specifically Dr. Kaufman, has been consulted for permanent pacemaker implantation. Continue home cardiac medications with the exception of Bystolic for now. Job#: [id number] EV
[2018-08-11] MEDS: INSULIN REGULAR, HUMAN 100 UNIT/1 ML 3ML VIAL SQ SCH ×2 (16:01→21:00)
[2018-08-11] MEDS ORDERED: MIDAZOLAM HCL 2 MG/2 ML VIAL ONE ×6 (17:57→19:47)
[2018-08-11] MEDS ORDERED: LIDOCAINE HCL 1% LOCAL INJ 20 ML VIAL ONE ×3 (17:58→19:43)
[2018-08-11] MEDS ORDERED: FENTANYL CITRATE/PF 100MCG/2 ML INJ ONE (17:58)
[2018-08-11] MEDS ORDERED: SODIUM CHLORIDE 0.9% 1000ML 2,000 ML ONE (17:58)
--- NOTE | 2018-08-11 18:23 | Consultation ---
DATE OF CONSULTATION: August 11, 2018 CARDIOLOGY CONSULTATION REFERRING PHYSICIAN: Dr. Martinez. REASON FOR CONSULT: Bradycardia. HISTORY OF PRESENT ILLNESS: This is a 72-year-old woman with history of hypertension, history of recurrent syncope. She has a baseline right bundle branch block. She has had 4 syncope events over the last 4 months. She underwent a loop recording monitor placement about 2 or 3 weeks ago, and this time she had another episode about 3 days ago that correlated with a significant episode of sinus pause and evidence of complete heart block for more than 5 seconds. Patient is currently admitted to the hospital. She is currently hemodynamically stable. We are consulted to consider a pacemaker. There is no seizure-like activity. There is no chest pain, no other symptoms. Patient has history of normal EF in December 2017. REVIEW OF SYSTEMS CONSTITUTIONAL: Negative. CARDIOVASCULAR: As per HPI, otherwise negative. RESPIRATORY: Negative. GASTROINTESTINAL: Negative. GENITOURINARY: Negative. MUSCULOSKELETAL: Negative. EYES: Negative. ENT: Negative. ALLERGY/IMMUNOLOGY: Negative. PSYCHIATRY: Negative. PAST MEDICAL HISTORY: Hypertension. SURGICAL HISTORY: Negative. FAMILY HISTORY: No premature coronary artery disease. SOCIAL HISTORY: No smoking or alcohol. PHYSICAL EXAMINATION VITAL SIGNS: Blood pressure 128/60, pulse 70, respiration 20, O2 sat is 98%. GENERAL: No acute distress. HEENT: Moist mucous membranes. CARDIOVASCULAR: Regular. RESPIRATORY: Clear. ABDOMEN: Soft, nontender. MUSCULOSKELETAL: 2+ distal pulses. NEUROLOGICAL: No focal deficit. SKIN: No lesions. PSYCHIATRY: Normal thought process. ELECTROCARDIOGRAM: Sinus rhythm, right bundle branch block. IMPRESSION: Symptomatic bradycardia with sinus pauses and episodes of complete heart block causing syncope. No reversible causes. RECOMMENDATIONS: Discussed with the patient in detail benefits and risks. She voices understanding and wishes to proceed. Will plan for a dual-chamber pacemaker placement, also removal of a loop recorder. Thank you for letting us participate in [facility]. Job#: [id number] EV
[2018-08-11] MEDS ORDERED: VANCOMYCIN 1GM/NS 250 ML 250 ML ONE (18:37)
[2018-08-11] MEDS ORDERED: BACITRACIN 50,000 UNIT VIAL ONE ×2 (19:05→19:09)
[2018-08-11] MEDS ORDERED: SODIUM CHLORIDE 0.9% 1000ML 1,000 ML ONE (19:05)
[2018-08-11 20:00] VITALS: BP 135/61
[2018-08-11] MEDS ORDERED: MORPHINE SULFATE 2 MG/ML SYR IV PRN (20:45)
[2018-08-11 20:58] VITALS: BP 135/61
[2018-08-11 21:44] LABS: CREATINE KINASE MB 4.1 ng/mL (0-5.0)
[2018-08-11] MEDS: ACETAMINOPHEN 325 MG TAB PO PRN (21:51)
--- NOTE | 2018-08-11 22:04 | Diagnostic Imaging Report ---
EXAM: CHEST SINGLE (PORTABLE), AP 1 view INDICATION: Post pacemaker placement, sinus pause, syncope COMPARISON: AP view of the chest August 11, 2018 at 1234 hours FINDINGS: LINES/TUBES: Interval placement of left approach dual lead pacemaker with leads in expected location of the right atrial appendage and right ventricle. LUNGS: Linear subsegmental atelectasis left lung base. PLEURA: No effusions or pneumothorax. HEART AND MEDIASTINUM: Normal size and contour. BONES AND SOFT TISSUES: No acute findings. IMPRESSION: Interval placement of left approach pacemaker. No pneumothorax. Signed by: Dr. Sandra Biggs M.D. on 08/11/2018 10:01 PM
[2018-08-12] VITALS: BP 111/54
[2018-08-12] MEDS: ACETAMINOPHEN 325 MG TAB PO PRN ×2 (03:44→08:36)
[2018-08-12 05:16] VITALS: BP 125/61
[2018-08-12 06:20] LABS: CREATINE KINASE MB 3.3 ng/mL (0-5.0)
[2018-08-12 07:07] LABS: BASOPHILS % 0.4 % (0.0-1.0); EOSINOPHILS # (AUTO) 0.2 (0.0-0.4); EOSINOPHILS % 1.9 % (0.0-6.0); HEMATOCRIT 42.2 % (34.2-44.1); HEMOGLOBIN 13.7 g/dL (12.0-16.0); LYMPHOCYTES # (AUTO) 3.6 (1.0-3.2); LYMPHOCYTES % 39.6 % (18.0-39.1); MEAN CORPUSCULAR HEMOGLOBIN 29.3 pg (28-32); MEAN CORPUSCULAR HGB CONC 32.5 g/dL (31-35); MEAN CORPUSCULAR VOLUME 90.2 fL (81-99); MONOCYTES # (AUTO) 0.9 (0.2-0.8); MONOCYTES % 9.5 % (4.4-11.3); NEUTROPHILS # (AUTO) 4.4 (2.1-6.9); NEUTROPHILS % 47.8 % (38.7-80.0); PLATELET COUNT 243 x10e3/uL (140-360); RED BLOOD COUNT 4.68 x10e6/uL (3.6-5.1); RED CELL DISTRIBUTION WIDTH 12.9 % (11.7-14.4)
[2018-08-12] MEDS: INSULIN REGULAR, HUMAN 100 UNIT/1 ML 3ML VIAL SQ SCH ×2 (07:30→11:30)
[2018-08-12 07:31] LABS: ANION GAP 13.7 mmol/L (8-16); BLOOD UREA NITROGEN 13 mg/dL (7-26); BUN/CREATININE RATIO 19 (6-25); CALCIUM 10.1 mg/dL (8.4-10.2); CARBON DIOXIDE 23 mmol/L (22-29); CHLORIDE 106 mmol/L (98-107); CHOL/HDL RATIO 3.3 (3.0-3.6); CHOLESTEROL 118 MD/DL (0-199); EST GLOMERULAR FILTRATION RATE > 60 ML/MIN (60-); GLUCOSE 108 mg/dL (74-118); HDL CHOLESTEROL 36 MG/DL (40-60); LDL CHOLESTEROL 51 MG/DL (60-130); POTASSIUM 3.7 mmol/L (3.5-5.1); SODIUM 139 mmol/L (136-145); TRIGLYCERIDES 154 MG/DL (0-149)
[2018-08-12 08:20] VITALS: BP 154/69
[2018-08-12 12:13] VITALS: BP 141/63
[2018-08-12] MEDS ORDERED: MINOCYCLINE HCL50 MG PO (14:33)
[2018-08-12] MEDS ORDERED: ULTRAM50 MG PO (14:34)
--- NOTE | 2018-08-12 23:21 | Operative Report ---
DATE OF PROCEDURE: August 11, 2018 PREPROCEDURE DIAGNOSES: 1. Recurrent syncope. 2. Sinus pause and complete heart block on loop recorder monitor. POSTPROCEDURE DIAGNOSES: 1. Recurrent syncope. 2. Sinus pause and complete heart block on loop recorder monitor. ESTIMATED BLOOD LOSS: 5 mL. PROCEDURES PERFORMED: 1. Dual-chamber pacemaker placement. 2. Removal of a loop recorder. 3. Moderate sedation. Moderate conscious sedation was provided under my direct supervision by a sedation-trained nurse. Sedation approximate time 30 minutes, Versed and Fentanyl. There were no complications. See sedation form for details. COMPLICATIONS: None. DESCRIPTION OF PROCEDURE: After informed consent was obtained, patient was brought to the electrophysiology laboratory in a fasting, nonsedated state. Area over her chest was prepped and draped in the usual sterile fashion. Moderate sedation and prophylactic antibiotic were given, 1% lidocaine was used as a local anesthetic, and a 3-cm skin incision was made in the left subclavicular area. Electrocautery and blunt dissection were used to reach the muscular fascia and a pocket was created for eventual implantation of the device. Vascular access was obtained x2 in the left axillary vein using the modified Seldinger technique under fluoroscopic guidance. Two 6-Belarusian sheaths were placed. The ventricular lead advanced to the RV apex, R-wave 5, pacing 0.5 at 0.5, impedance 700; atrial lead to the right atrial appendage, P-wave 5, pacing 1.4 at 0.5, impedance 500. Sheaths were removed from the body. Leads were secured to fascia using #0 silk. Pocket was irrigated with antibiotic solution using the pulse small engine mechanic. Hemostasis was meticulous. Leads were connected to the device, the entire pacemaker system placed in the pocket. Incision was closed using Vicryl and Dermabond. Patient tolerated the procedure well. Procedure was deemed complete. We then removed the loop recorder. The area was prepped and draped in usual sterile fashion. 1% lidocaine was used as a local anesthetic. A 1-cm skin incision was made in the midsternal area and the loop recorder was removed from the body using the hemostat. The incision was closed using Vicryl and Dermabond. Patient tolerated the procedure well. Procedure was deemed complete. SUMMARY OF HARDWARE IMPLANTED: 1. The new pacemaker is Kamelio, model #L311, [id number]. 2. The atrial lead is [employer], model #7740, 267642. 3. The ventricular lead is [employer], model #1938, [id number]. IMPRESSION: 1. Successful implantation of a dual-chamber pacemaker placement. 2. Successful removal of a loop recorder. PLAN: 1. Routine postoperative monitoring on telemetry bed. 2. Chest x-ray. 3. Follow up in 2 weeks. Job#: [id number]
--- NOTE | 2018-10-13 16:00 | Discharge Summary ---
ADMISSION DIAGNOSES 1. Symptomatic bradycardia. 2. Sinus pause. DISCHARGE DIAGNOSES 1. Sinus pause. 2. Recurrent syncope. CONSULTS: Electrophysiology, Dr. Kaufman. PROCEDURE: Permanent pacemaker implantation. HISTORY OF PRESENT ILLNESS: This is a 72-year-old woman with history of hypertension and right bundle branch block, who has had episodes of recurrent syncope. She underwent implantable loop recorder placement, and was noted to have a sinus pause with complete heart block during her last syncopal episode. She was therefore admitted for permanent pacemaker placement. Electrophysiology was consulted. The patient underwent permanent pacemaker implantation without complications, and was discharged home the following day in stable condition. ACTIVITY: Arm restrictions per electrophysiology. DIET: Heart-healthy, low fat, low cholesterol diet, low sodium diet. FOLLOWUP: Dr. Martinez in [address] Kaufman in 2 weeks. DISCHARGE MEDICATIONS: Please see medication reconciliation. ROC MARTINEZ MD Job#: [id number] AR
== END 2018-08-12 15:28 | disposition home or self-care (01) ==
LOC: ER 11:43 → ERHOLD 12:47 → MED/SURG2 14:11
PROVIDERS: ADMIT Internal Medicine; ATTEND Internal Medicine
DX: R55 Syncope and collapse (principal); I44.2 Atrioventricular block, complete; Z82.49 Family history of ischemic heart disease and other diseases of the circulatory system; R00.2 Palpitations; E11.9 Type 2 diabetes mellitus without complications; I10 Essential (primary) hypertension; E78.5 Hyperlipidemia, unspecified; Z86.12 Personal history of poliomyelitis; G47.30 Sleep apnea, unspecified; Z95.811 Presence of heart assist device; R00.1 Bradycardia, unspecified; Z79.84 Long term (current) use of oral hypoglycemic drugs
CPT/HCPCS: 33208; 33284; 36415 ×2; 71045; 80048; 80053; 80061; 81001; 82550 ×2; 82553 ×2; 82948 ×2; 83735; 84484 ×2; 85025 ×2; 85610; 85730; 87086; 93005; 99284; C1785; C1898; G0378 ×2; J2001; J2250; J3370; J7030

== ENCOUNTER → 2020-09-28 | Outpatient (CLI) | payer MEDICARE ==
[~2020-09-28] MED LIST changes: +LOSARTAN POTASS25 MG PEG; +MINOCYCLINE HCL50 MG PO; +ULTRAM50 MG PO
== END ==
LOC: RAD 09:33
PROVIDERS: ATTEND Family Medicine
DX: R05 Cough (principal)
CPT/HCPCS: 71046